=== PATIENT | female | born 1995 | race African-American/Black ===

== ENCOUNTER 2016-12-25 21:17 | Emergency (ER) | payer MEDICAID ==
[2016-12-26] MEDS ORDERED: ONDANSETRON ODT 4 MG TAB (6 TAB/DSPK) PO PRN (00:23)
[2016-12-26] MEDS ORDERED: LIDOCAINE 5% (700 MG) TRANSDERMAL ADH..PATCH TP ONE (00:23)
--- NOTE | 2016-12-26 00:24 | ER Document Report ---
ED General - General Chief Complaint: Insect Bite Stated Complaint: INSECT BITE Notes: Patient is a 21-year-old female without past medical history who presents with concerns of being bit by a spider. States that several days ago she felt something bite her left lower extremity since that time she has had a dull, constant, throbbing pain to the area. States today she began to develop some mild nausea and abdominal cramping and had one episode of nonbilious vomiting. No history of similar symptoms in the past. Nothing improves or worsens her pain. She has not seen a primary care doctor regarding today's concerns. She denies any fever, headache, neck pain, altered mental status, diarrhea, or shortness of breath. TRAVEL OUTSIDE OF THE [place] IN LAST 30 DAYS: No - Related Data Allergies/Adverse Reactions: No Known Allergies Allergy (Verified 12/25/16 21:57) Past Medical History - General Information source: Patient - Social History Smoking Status: Never Smoker Frequency of alcohol use: None Drug Abuse: None Lives with: Family Family History: Reviewed & Not Pertinent Patient has suicidal ideation: No Patient has homicidal ideation: No - Past Medical History Cardiac Medical History: Reports: Hx Hypercholesterolemia Pulmonary Medical History: Reports: Hx Bronchitis Renal/ Medical History: Denies: Hx Peritoneal Dialysis - Immunizations Immunizations up to date: Yes Hx Diphtheria, Pertussis, Tetanus Vaccination: Yes - already received Review of Systems - Review of Systems Notes: Constitutional: Negative for fever. HENT: Negative for sore throat. Eyes: Negative for visual changes. Cardiovascular: Negative for chest pain. Respiratory: Negative for shortness of breath. Gastrointestinal: Positive for abdominal cramping and vomiting Genitourinary: Negative for dysuria. Musculoskeletal: Negative for back pain. Skin: Negative for rash. Neurological: Negative for headaches, weakness or numbness. 10 point ROS negative except as marked above and in HPI. Physical Exam - Vital signs Vitals: Temp Pulse Resp BP Pulse Ox 98.2 F 80 18 131/81 H 100 12/25/16 21:53 12/25/16 21:53 12/25/16 21:53 12/25/16 21:53 12/25/16 21:53 Interpretation: Normal Notes: PHYSICAL EXAMINATION: GENERAL: Well-appearing, well-nourished and in no acute distress. HEAD: Atraumatic, normocephalic. EYES: Pupils equal round and reactive to light, extraocular movements intact, sclera anicteric, conjunctiva are normal. ENT: nares patent, oropharynx clear without exudates. Moist mucous membranes. NECK: Normal range of motion, supple without lymphadenopathy LUNGS: Breath sounds clear to auscultation bilaterally and equal. No wheezes rales or rhonchi. HEART: Regular rate and rhythm without murmurs ABDOMEN: Soft, nontender, normoactive bowel sounds. No guarding, no rebound. No masses appreciated. EXTREMITIES: Normal range of motion, no pitting or edema. No cyanosis. NEUROLOGICAL: No focal neurological deficits. Moves all extremities spontaneously and on command. PSYCH: Normal mood, normal affect. SKIN: Warm, Dry, normal turgor, 2 punctate lesions on the distal quadriceps of the left lower extremity Course - Re-evaluation Re-evalutation: 12/26/16 02:54 Presentation of what appears to be a true spider bite to the left lower extremity without signs of associated infection. Patient has had some associated abdominal discomfort and one episode of vomiting. She is otherwise very well in appearance, vitals within normal limits, no focal abdominal tenderness on examination. I recommended symptomatic care and close outpatient follow-up. The patient and her mother are consistent on a course of antibiotics. I have given a short course of Keflex. Instructed the patient not start this medication unless she develops signs of infection which I have reviewed at the bedside.At this time will discharge with return precautions and follow-up recommendations. Verbal discharge instructions given a the bedside and opportunity for questions given. Medication warnings reviewed. Patient is in agreement with this plan and has verbalized understanding of return precautions and the need for primary care follow-up in the next 24-72 hours. - Vital Signs Vital signs: Temp Pulse Resp BP Pulse Ox 98.2 F 81 16 131/74 H 100 12/25/16 21:53 12/26/16 00:52 12/26/16 00:52 12/26/16 00:52 12/26/16 00:52 Discharge - Discharge Clinical Impression: Insect bite Qualifiers: Encounter type: initial encounter Qualified Code(s): W57.XXXA - Bitten or stung by nonvenomous insect and other nonvenomous arthropods, initial encounter Condition: Good Disposition: HOME, SELF-CARE Additional Instructions: You can begin the Keflex if you notice spreading redness from the area and your pain does not improve in the next 24-48 hours, or if you feel more comfortable starting now. Take Zofran you were sent home with as needed for nausea. He can take ibuprofen 600 mg every 6 hours for discomfort and apply topical lidocaine to the area. Return for any new or worsening symptoms including fever greater than 100.4F, persistent vomiting, or any other symptoms that are worrisome to you. Prescriptions: Cephalexin Monohydrate [Keflex 500 mg Capsule] 500 mg PO QID #20 capsule
[2016-12-26 00:53] VITALS: BP 131/74
== END 2016-12-26 00:53 | disposition home or self-care (01) ==
LOC: ER 21:17
DX: S70.362A Insect bite (nonvenomous), left thigh, initial encounter (principal); W57.XXXA Bitten or stung by nonvenomous insect and other nonvenomous arthropods, initial encounter; R10.9 Unspecified abdominal pain; R11.2 Nausea with vomiting, unspecified
CPT/HCPCS: 99281; J3490

== ENCOUNTER 2017-01-04 08:15 | Emergency (ER) | payer SELFPAY ==
[2017-01-04 08:20] VITALS: BP 129/80
--- NOTE | 2017-01-04 09:11 | ER Document Report ---
ED GI/ - General Mode of Arrival: Ambulatory Information source: Patient TRAVEL OUTSIDE OF THE [place] IN LAST 30 DAYS: No - HPI Patient complains to provider of: Abdominal pain Onset: Other - 2 weeks ago Timing/Duration: Intermittent, Persistent Location: Epigastric Associated symptoms: Nausea <CHI ROMAN - Last Filed: 01/04/17 09:23> <CHRISTIANE BHAT - Last Filed: 01/04/17 13:31> - General Chief Complaint: Abdominal Pain Stated Complaint: ABDOMINAL PAIN, BODY PAIN Notes: Patient is a 21-year-old female presenting to the emergency department concerned of intermittent epigastric abdominal pain onset 2 weeks ago. Patient states that the pain is worse at night, and sometimes wakes her up out of her sleep. Patient states that each episode lasts approximately an hour. Patient has associated nausea, but denies diarrhea or vomiting at this time. Patient's primary care provider is [facility]. (CHI ROMAN) - Related Data Allergies/Adverse Reactions: No Known Allergies Allergy (Verified 12/25/16 21:57) Past Medical History - General Information source: Patient, [facility] Records - Social History Smoking Status: Current Every Day Smoker Chew tobacco use (# tins/day): No Frequency of alcohol use: None Drug Abuse: None Family History: Reviewed & Not Pertinent Pulmonary Medical History: Reports: Hx Bronchitis - Immunizations Immunizations up to date: Yes Hx Diphtheria, Pertussis, Tetanus Vaccination: Yes - already received <CHI ROMAN - Last Filed: 01/04/17 09:23> Review of Systems - Review of Systems Constitutional: No symptoms reported EENT: No symptoms reported Cardiovascular: No symptoms reported Respiratory: No symptoms reported Gastrointestinal: See HPI, Abdominal pain Genitourinary: No symptoms reported Female Genitourinary: No symptoms reported Musculoskeletal: No symptoms reported Skin: No symptoms reported Hematologic/Lymphatic: No symptoms reported Neurological/Psychological: No symptoms reported -: Yes All other systems reviewed and negative <CHI ROMAN - Last Filed: 01/04/17 09:23> Physical Exam - General General appearance: Appears well, Alert - HEENT Head: Normocephalic, Atraumatic Eyes: Normal Pupils: PERRL - Respiratory Respiratory status: No respiratory distress Chest status: Nontender Breath sounds: Normal Chest palpation: Normal - Cardiovascular Rhythm: Regular Heart sounds: Normal auscultation Murmur: No - Abdominal Distension: No distension Bowel sounds: Normal Tenderness: Tender - Right upper quadrant and epigastric - Back Back: Normal, Nontender - Extremities General upper extremity: Normal inspection, Nontender General lower extremity: Normal inspection, Nontender - Neurological Neuro grossly intact: Yes Cognition: Normal Orientation: AAOx4 Sachse Coma Scale Eye Opening: Spontaneous Cee Coma Scale Verbal: Oriented Cee Coma Scale Motor: Obeys Commands Cee Coma Scale Total: 15 Speech: Normal - Psychological Associated symptoms: Normal affect, Normal mood - Skin Skin Temperature: Warm Skin Moisture: Dry Skin Color: Normal <CHI ROMAN - Last Filed: 01/04/17 09:23> Course <CHI ROMAN - Last Filed: 01/04/17 09:23> - Laboratory Result Diagrams: 01/04/17 09:30 01/04/17 09:30 - Diagnostic Test Radiology reviewed: Reports reviewed - Gallbladder ultrasound was unremarkable <CHRISTIANE BHAT - Last Filed: 01/04/17 13:31> - Re-evaluation Re-evalutation: 01/04/17 13:30 After the gallbladder ultrasound came back unremarkable and lab work is normal, advised the patient quite possibly is just reflux which is worse when she lays down. I informed her we would give her a cocktail of lidocaine and Maalox to drink which may make it feel much better. After she got the GI cocktail, she eloped is what I was told by the nurse. This occurred while I was in another room trying to get IV access on a critically ill patient. At this point I have no way of knowing if the GI cocktail improved her symptoms, but assume it must have if she left. (CHRISTIANE BHAT) - Vital Signs Vital signs: Temp Pulse Resp BP Pulse Ox 98.5 F 100 16 129/80 H 100 01/04/17 08:18 01/04/17 08:18 01/04/17 08:18 01/04/17 08:18 01/04/17 08:18 - Laboratory Laboratory results interpreted by me: 01/04/17 01/04/17 01/04/17 08:50 09:30 09:30 Seg Neutrophils % 37.8 L Lymphocytes % 51.4 H AST 64 H ALT 59 H Urine Protein >=500 H Urine Urobilinogen 4.0 H Discharge <CHI ROMAN - Last Filed: 01/04/17 09:23> <CHRISTIANE BHAT - Last Filed: 01/04/17 13:31> - Discharge Clinical Impression: Epigastric abdominal pain Condition: Stable Disposition: ELOPED Scribe Attestation: 01/04/17 13:31 I personally performed the services described in the documentation, reviewed and edited the documentation which was dictated to the scribe in my presence, and it accurately records my words and actions. (CHRISTIANE BHAT) Scribe Documentation - Scribe Written by Scribmony:: Chi Roman 01/04/2017 0911 acting as scribe for :: Jody <CIH ROMAN - Last Filed: 01/04/17 09:23>
[2017-01-04 09:40] LABS: ABSOLUTE EOSINOPHILS # (AUTO) 0.1 10^3/uL (0.0-0.6); ABSOLUTE LYMPHOCYTES (AUTO) 2.7 10^3/uL (0.5-4.7); ABSOLUTE MONOCYTES (AUTO) 0.4 10^3/uL (0.1-1.4); BASOPHILS % (AUTO) 0.3 % (0-2); EOSINOPHILS % (AUTO) 2.5 % (0-6); HEMATOCRIT 37.7 % (36.0-47.0); HEMOGLOBIN 12.8 g/dL (12.0-15.5); HGB HCT DIFFERENCE 0.7; LYMPHOCYTES % (AUTO) 51.4 % (13-45); MEAN CORPUSCULAR HEMOGLOBIN 30.3 pg (27.0-33.4); MEAN CORPUSCULAR HGB CONC 33.8 g/dL (32.0-36.0); MEAN CORPUSCULAR VOLUME 89 fl (80-97); RED BLOOD COUNT 4.22 10^6/uL (3.72-5.28); RED CELL DISTRIBUTION WIDTH 12.6 % (11.5-14.0); SEGMENTED NEUTROPHILS % (AUTO) 37.8 % (42-78); WHITE BLOOD COUNT 5.2 10^3/uL (4.0-10.5)
[2017-01-04 09:58] LABS: ALANINE AMINOTRANSFERASE 59 U/L (9-52); ALBUMIN 3.8 g/dL (3.5-5.0); ALKALINE PHOSPHATASE 61 U/L (38-126); ANION GAP 8 (5-19); ASPARTATE AMINO TRANSFERASE 64 U/L (14-36); BILIRUBIN,DIRECT 0.2 mg/dL (0.0-0.4); BILIRUBIN,TOTAL 0.8 mg/dL (0.2-1.3); BLOOD UREA NITROGEN 17 mg/dL (7-20); CALCIUM 8.8 mg/dL (8.4-10.2); CARBON DIOXIDE 27 mmol/L (22-30); CHLORIDE 106 mmol/L (98-107); CREATININE RESULT 0.78 mg/dL (0.52-1.25); GLUCOSE 96 mg/dL (75-110); POTASSIUM 3.8 mmol/L (3.6-5.0); SODIUM 141.1 mmol/L (137-145); TOTAL PROTEIN 7.1 g/dL (6.3-8.2)
[2017-01-04 10:03] LABS: APPEARANCE,URINE TURBID; BILIRUBIN,URINE NEGATIVE (NEGATIVE); GLUCOSE, URINE NEGATIVE (NEGATIVE); KETONES,URINE NEGATIVE (NEGATIVE); LEUKOCYTE ESTERASE,URINE NEGATIVE (NEGATIVE); NITRITE,URINE NEGATIVE (NEGATIVE); PROTEIN,URINE >=500 mg/dL (NEGATIVE); URINE SPECIFIC GRAVITY 1.033
[2017-01-04] MEDS ORDERED: MAG HYDROX/AL HYDROX/SIMETH SUSP 30 ML UDCUP PO ONE (12:08)
[2017-01-04] MEDS ORDERED: LIDOCAINE 2% VISCOUS SOLN 20 ML UDCUP PO ONE (12:08)
== END 2017-01-04 12:38 | disposition left against medical advice (07) ==
LOC: ER 08:15
DX: R10.13 Epigastric pain (principal); R10.816 Epigastric abdominal tenderness; R10.811 Right upper quadrant abdominal tenderness; R11.0 Nausea; F17.200 Nicotine dependence, unspecified, uncomplicated; Z53.20 Procedure and treatment not carried out because of patient's decision for unspecified reasons
CPT/HCPCS: 99281; 36415; 85025; 81025; 80053; 81001; 76705; J3490